=== PATIENT | female | born 1930 | race Caucasian/White ===

== ENCOUNTER 2020-01-08 11:53 | Emergency (ER) | payer MEDICARE, BC ==
--- NOTE | 2020-01-08 13:05 | EDM.PDOC ---
<Pepper Soares M - Last Filed: 01/08/20 15:09> ED HPI GENERAL MEDICAL PROBLEM - General Chief Complaint: Gastrointestinal Problem Stated Complaint: BLEEDING HEMORRHOIDS Time Seen by Provider: 01/08/20 12:20 Source of Information: Reports: Patient, RN, RN Notes Reviewed History Limitations: Reports: No Limitations - History of Present Illness INITIAL COMMENTS - FREE TEXT/NARRATIVE: 89 year old female, otherwise healthy, arrives ER private vehicle with son that lives with her for onset weakness from rectal bleeding last Tuesday and Tuesday. Pt states used 2 rolls of TP due to the amount of bright red blood. Denies pain in rectum or abdomen. Pt states has BM only 1 time weekly with the use of "a little pill". When BM is achieved, the stool is loose. Appears to be chronic in nature as pt explains it happens usually for "one day and it goes away". Pt does not remember the remote history of diverticulitis per chart. Onset: Gradual Onset Date: 01/01/20 (Rectal bleeding started and and used 2 rolls of TP. Has since stopped. Smear of blood this am. ) Duration: Day(s):, Recurring Location: Reports: Abdomen, Other (Rectum ) Quality: Reports: Other (Denies pain ) Severity: Mild Improves with: Reports: None Worsens with: Reports: None Associated Symptoms: Reports: Weakness - Related Data Allergies Allergy/AdvReac Type Severity Reaction Status Date / Time No Known Allergies Allergy Verified 01/08/20 12:23 Home Meds: Home Meds Flaxseed Oil 1,000 mg PO DAILY 01/08/20 [History] Garlic 100 mg PO DAILY 01/08/20 [History] Glucosamine [Glucosamine Sulfate] 1,000 mg PO DAILY 01/08/20 [History] Multivitamin [Multi-Vitamin Daily] 1 cap PO DAILY 01/08/20 [History] Vitamin B 12 Inj 1000 Mcg 1 injection IM ASDIRECTED 01/08/20 [History] Past Medical History HEENT History: Reports: Other (See Below) 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 Cardiovascular History: Reports: High Cholesterol Respiratory History: Reports: None Gastrointestinal History: Reports: Diverticulosis 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: Musculoskeletal History: Reports: Osteoporosis Endocrine/Metabolic History: Reports: Diabetes, Type II Hematologic History: Reports: B12 Deficiency - Past Surgical History GI Surgical History: Reports: Colonoscopy Female Surgical History: Reports: Oophorectomy Musculoskeletal Surgical History: Reports: Arthroscopic Knee Social & Family History - Tobacco Use Smoking Status *Q: Never Smoker - Caffeine Use Caffeine Use: Reports: Coffee Caffeine Use Comment: quit 2 weeks ago - Recreational Drug Use Recreational Drug Use: No - Living Situation & Occupation Living situation: Reports: with Family Occupation: Retired ED ROS GENERAL - Review of Systems Review Of Systems: See Below Constitutional: Reports: Weakness, Decreased Appetite, Other (States she does no t eat much) HEENT: Reports: No Symptoms Respiratory: Reports: No Symptoms Cardiovascular: Reports: No Symptoms Endocrine: Reports: Other (DM 2 controlled with diet ) GI/Abdominal: Reports: Other (Blood from rectum last and Tuesday) : Reports: Frequency Musculoskeletal: Reports: Muscle Stiffness, Other (BL knees replaced) Skin: Reports: Dryness Psychiatric: Reports: No Symptoms Hematologic/Lymphatic: Reports: No Symptoms Immunologic: Reports: No Symptoms ED EXAM, GI/ABD - Physical Exam Exam: See Below Exam Limited By: No Limitations General Appearance: Alert, WD/WN, No Apparent Distress Head: Atraumatic, Normocephalic Neck: Normal Inspection Respiratory/Chest: No Respiratory Distress, Lungs Clear, Normal Breath Sounds, No Accessory Muscle Use, Chest Non-Tender Cardiovascular: Regular Rate, Rhythm, No Gallop, No JVD, No Murmur, No Rub GI/Abdominal Exam: Normal Bowel Sounds, Soft, Non-Tender, No Organomegaly, No Distention (Female) Exam: Deferred Rectal (Female) Exam: Deferred Extremities: Pedal Edema, Limited Range of Motion (Bl knees) Neurological: Alert, Oriented, Normal Cognition Psychiatric: Normal Affect, Normal Mood Skin Exam: Warm, Dry, Intact, Normal Color, No Rash Course - Vital Signs Text/Narrative:: P"t examined. Labs and xray ordered. Labs reviewed. WBC elevated. UA negative. Will Ct for diverticulitis Reports dictated. Will call for referral Pt will transfer as a diversion to [facility]. Departure - Departure Disposition: DC/Tfer to Other Condition: Good Clinical Impression: Abdominal abscess - Discharge Information *PRESCRIPTION DRUG MONITORING PROGRAM REVIEWED*: Not Applicable *COPY OF PRESCRIPTION DRUG MONITORING REPORT IN PATIENT SCOTTIE: Not Applicable Referrals: Yeison Courtney MD [Primary Care Provider] - Forms: ED Department Discharge Additional Instructions: Pt will be transferred to [facility] with abdominal abscess due to diversion. Pt has been accepted by Dr. Borrero. Sepsis Event Note (ED) - Evaluation Sepsis Screening Result: No Definite Risk - Problem List Review Problem List Initiated/Reviewed/Updated: Yes <Zain Moore - Last Filed: 01/08/20 15:59> Course - Vital Signs Last Recorded V/S: Last Vital Signs Temp 98.7 F 01/08/20 15:42 Pulse 105 H 01/08/20 15:42 Resp 34 H 01/08/20 15:42 BP 123/50 L 01/08/20 15:42 Pulse Ox 96 01/08/20 15:42 - Orders/Labs/Meds Labs: Laboratory Tests 01/08/20 01/08/20 01/08/20 Range/Units 13:06 13:06 13:40 WBC 26.3 H (4.5-11.0) K/uL RBC 3.80 (3.30-5.50) M/uL Hgb 11.6 L (12.0-15.0) g/dL Hct 36.8 (36.0-48.0) % MCV 97 (80-98) fL MCH 31 (27-31) pg MCHC 32 (32-36) % Plt Count 209 (150-400) K/uL Neut % (Auto) 90 H (36-66) % Lymph % (Auto) 3 L (24-44) % [place] % (Auto) 8 H (2-6) % Eos % (Auto) 0 L (2-4) % Baso % (Auto) 0 (0-1) % Sodium 138 L (140-148) mmol/L Potassium 4.0 (3.6-5.2) mmol/L Chloride 102 (100-108) mmol/L Carbon Dioxide 27 (21-32) mmol/L Anion Gap 13.0 (5.0-14.0) mmol/L BUN 22 H (7-18) mg/dL Creatinine 1.4 H (0.6-1.0) mg/dL Est Cr Clr Drug Dosing 26.00 mL/min Estimated GFR (MDRD) 35 L (>60) Glucose 161 H (74-106) mg/dL Calcium 8.4 L (8.5-10.1) mg/dL Total Bilirubin 1.1 H (0.2-1.0) mg/dL AST 24 (15-37) U/L ALT 16 (12-78) U/L Alkaline Phosphatase 111 (46-116) U/L Total Protein 6.4 (6.4-8.2) g/dL Albumin 2.3 L (3.4-5.0) g/dL Globulin 4.1 H (2.3-3.5) g/dL Albumin/Globulin Ratio 0.6 L (1.2-2.2) Urine Color Yellow (YELLOW) Urine Appearance Cloudy A (CLEAR) Urine pH 5.5 (5.0-8.0) Ur Specific [place] 1.020 (1.008-1.030) Urine Protein 30 H (NEGATIVE) mg/dL Urine Glucose (UA) Negative (NEGATIVE) mg/dL Urine Ketones Negative (NEGATIVE) mg/dL Urine Occult Blood Trace-lysed H (NEGATIVE) Urine Nitrite Positive H (NEGATIVE) Urine Bilirubin Negative (NEGATIVE) Urine Urobilinogen 0.2 (0.2-1.0) EU/dL Ur Leukocyte Esterase Negative (NEGATIVE) Urine RBC 0-5 (0-5) Urine WBC 0-5 (0-5) Ur Epithelial Cells Not seen Amorphous Sediment Not seen Urine Bacteria Many Urine Mucus Not seen Meds: Medications Discontinued Medications Generic Name Dose Route Start Last Admin Trade Name Freq PRN Reason Stop Dose Admin Sodium Chloride 1,000 mls @ 250 mls/hr 01/08/20 15:15 01/08/20 15:29 Normal Saline IV 250 mls/hr ASDIRECTED KRISTY Administration Ertapenem 1 gm/ Sodium 100 mls @ 200 mls/hr 01/08/20 15:45 01/08/20 15:43 Chloride IV 01/08/20 16:14 200 mls/hr ONETIME ONE Administration - Re-Assessments/Exams Free Text/Narrative Re-Assessment/Exam: 01/08/20 15:22 Due to elevated white count, persistence of rectal hematuria and lower abdominal discomfort CT scan without contrast was obtained and revealed a fairly large abdominal abscess behind the bladder with a possible fistula. Images were sent to [facility] and I discussed her case with Dr. Borrero, as we have no beds here and he kindly accepted transfer the patient. She will be given 1 g of IV Invanz, normal saline at 250 cc an hour and transferred for evaluation of possible IR evacuation of the abscess or surgical consultation. She also may need urology's input as there may be a fistula from the bladder. Departure - Departure Time of Disposition: 15:53 Sepsis Event Note (ED) - Focused Exam Vital Signs: Vital Signs Temp Pulse Resp BP Pulse Ox 01/08/20 15:42 98.7 F 105 H 34 H 123/50 L 96 01/08/20 14:42 108 H 16 129/86 95 01/08/20 12:35 98.3 F 93 30 H 121/60 95 01/08/20 12:23 98.3 F 93 30 H 121/60 95 Attestation - Student - Attestation Statement Attestation Statement: I personally performed or re-performed the physical examination and medical decision making. I have verified all student documentation or findings, including history, physical exam and/or medical decision making.
--- NOTE | 2020-01-08 13:52 | CR ---
Abdomen 2V AP Flat Upright CLINICAL HISTORY: Obstruction FINDINGS: No free air is identified. There are scattered air-filled loops of small bowel in a nonacute configuration. There is gas and feces throughout the colon. IMPRESSION: Nonacute intestinal gas pattern There is some fecal retention
--- NOTE | 2020-01-08 14:49 | CT ---
Abdomen Pelvis wo Cont CLINICAL HISTORY: GI bleed and leukocytosis COMPARISON: None. TECHNIQUE: Axial tomographic images are obtained from the dome of the diaphragm to the pubic symphysis without IV contrast enhancement. No oral contrast was used. Auto dosage reduction and iterative reconstruction techniques employed. FINDINGS: Posterior to the low rectum is a 5.3 x 5.8 x 7.1 cm focus of soft tissue inflammation with central air collection. The this is most consistent with a perirectal abscess. There is some generalized the thickening of the distal rectum. The anal converges below the imaging plane The lung bases show some diffuse bronchial thickening. There is some pleural parenchymal scarring.. The liver shows scattered granulomata. No mass or biliary dilatation is identified.. The gallbladder is packed full of small stones. The spleen shows scattered granulomata. The pancreas shows no mass or inflammatory change. The adrenal glands appear normal bilaterally. There is a 8 x 10 cm cyst in the upper pole of the right kidney with anterior wall calcification and possible septation. There is some scarring in the upper pole the left kidney. The aorta shows atheromatous plaque without aneurysm. There is no suspicious retroperitoneal adenopathy. The small intestinal configuration is nonacute. There is gas and feces throughout the colon. The appendix has a normal contour. IMPRESSION: 5.3 x 5.8 x 7.1 cm phlegmon and abscess formation with central air in the posterior perirectal region. This extends to the gluteal cleft. A cutaneous tract is not excluded. There is suspicion for small fistulous track extending to the posterior portion of the UG diaphragm. There is some generalized rectal thickening. Cholelithiasis Chronic lung field changes with moderate bronchial thickening
[2020-01-08] MEDS ORDERED: Ertapenem 1 GM in Sodium Chloride 0.9% 100 ML IV ONE ×2 (15:12→15:45)
[2020-01-08] MEDS ORDERED: Sodium Chloride 0.9% 1,000 ML IV SCH (15:15)
== END 2020-01-08 15:56 | disposition other institution (70) ==
LOC: JP.ED 11:53
DX: L02.211 Cutaneous abscess of abdominal wall (principal); R60.0 Localized edema; E11.9 Type 2 diabetes mellitus without complications
CPT/HCPCS: 36415; 74019; 74176; 80053; 81001; 85025; 96374; 99285; J1335; J7030; J7050

== ENCOUNTER 2020-03-03 17:02 | Emergency (ER) | payer MEDICARE, BC ==
--- NOTE | 2020-03-03 18:28 | EDM.PDOC ---
ED HPI GENERAL MEDICAL PROBLEM - General Chief Complaint: General Stated Complaint: WOUND BLEEDING Time Seen by Provider: 03/03/20 18:25 Source of Information: Reports: Patient History Limitations: Reports: No Limitations - History of Present Illness INITIAL COMMENTS - FREE TEXT/NARRATIVE: PT ARRIVED BEECAUSE SHE WAS HAVING SOME BLEEDING FROM THE WOUND SITE. tHERE WAS ALOT OF STOOL COVERING THE AREA. sHE HAD A INFECTED PILNUIDAL CYST. tHIS WAS REPACKED AT 3 PM TODAY. sHE NOW HAS NOT HAD BLEEDING FOR 2 HOURS. Onset: Today Duration: Hour(s): Location: Reports: Other ( WOUND FROM A PILNIDAL CYST. ) Associated Symptoms: Reports: No Other Symptoms - Related Data Allergies Allergy/AdvReac Type Severity Reaction Status Date / Time No Known Allergies Allergy Verified 03/03/20 17:55 Home Meds: Home Meds Flaxseed Oil 1,000 mg PO DAILY 01/08/20 [History] Garlic 100 mg PO DAILY 01/08/20 [History] Glucosamine [Glucosamine Sulfate] 1,000 mg PO DAILY 01/08/20 [History] Multivitamin [Multi-Vitamin Daily] 1 cap PO DAILY 01/08/20 [History] Vitamin B 12 Inj 1000 Mcg 1 injection IM ASDIRECTED 01/08/20 [History] Metoprolol Succinate 25 mg PO DAILY 03/03/20 [History] Past Medical History HEENT History: Reports: Other (See Below) 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 Cardiovascular History: Reports: High Cholesterol Respiratory History: Reports: None Gastrointestinal History: Reports: Diverticulosis 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: Musculoskeletal History: Reports: Osteoporosis Endocrine/Metabolic History: Reports: Diabetes, Type II Hematologic History: Reports: B12 Deficiency - Infectious Disease History Infectious Disease History: Reports: Chicken Pox, Measles, Shingles - Past Surgical History GI Surgical History: Reports: Colonoscopy Female Surgical History: Reports: Oophorectomy Musculoskeletal Surgical History: Reports: Arthroscopic Knee Social & Family History - Tobacco Use Smoking Status *Q: Unknown Ever Smoked - Caffeine Use Caffeine Use: Reports: Coffee Caffeine Use Comment: quit 2 weeks ago - Living Situation & Occupation Living situation: Reports: with Family Occupation: Retired ED ROS GENERAL - Review of Systems Review Of Systems: See Below Constitutional: Reports: No Symptoms HEENT: Reports: No Symptoms Respiratory: Reports: No Symptoms Cardiovascular: Reports: No Symptoms Endocrine: Reports: No Symptoms GI/Abdominal: Reports: No Symptoms : Reports: Other ( slight bleeding from the wound. ) Musculoskeletal: Reports: No Symptoms Skin: Reports: No Symptoms Neurological: Reports: No Symptoms Psychiatric: Reports: No Symptoms ED EXAM, GENERAL - Physical Exam Exam: See Below Free Text/Narrative:: pt arrived with concern about some bleeding after her pilnidal cyst wound was packed. On arrival she had a depends on and there was stool everywhere. There was no blood in the stool and no blood that could be seen coming from the wound, Exam Limited By: No Limitations General Appearance: Alert (Female) Exam: Other ( wound was packed at 3 pm. There was some bleeding from the wound. the area was cleaned up and the wound was obswerved and there was no bleeding. It was covered with guaze and a clen attends was put on. ) Rectal (Female) Exam: Other ( There was no rectal bleeding and there was no blood mixed with the stool. ) Course - Vital Signs Last Recorded V/S: Last Vital Signs Temp 36.8 C 03/03/20 17:55 Pulse 63 03/03/20 17:55 Resp 16 03/03/20 17:55 BP 133/62 03/03/20 17:55 Pulse Ox 95 03/03/20 17:55 Departure - Departure Time of Disposition: 18:46 Disposition: Home, Self-Care 01 Condition: Fair Clinical Impression: Pilonidal abscess - Discharge Information Referrals: Yeison Courtney MD [Primary Care Provider] - Forms: ED Department Discharge Care Plan Goals: continue with same care, home care will pack 3 times weekly. After packing pt was warned that there could be some bleeding. Sepsis Event Note (ED) - Evaluation Sepsis Screening Result: No Definite Risk - Focused Exam Vital Signs: Vital Signs Temp Pulse Resp BP Pulse Ox 03/03/20 17:55 36.8 C 63 16 133/62 95 03/03/20 17:34 36.8 C 63 16 133/62 95
== END 2020-03-03 19:01 | disposition home or self-care (01) ==
LOC: JP.ED 17:02
DX: L05.01 Pilonidal cyst with abscess (principal); E78.00 Pure hypercholesterolemia, unspecified; E11.9 Type 2 diabetes mellitus without complications; F17.200 Nicotine dependence, unspecified, uncomplicated; Z79.899 Other long term (current) drug therapy
CPT/HCPCS: 99283